=== PATIENT | female | born 1950 ===

== ENCOUNTER → 2023-05-21 14:30 | Outpatient (REF) | payer MEDICARE, SELFPAY ==
--- NOTE | 2023-05-21 14:43 | CA_ITS ---
Transthoracic Echocardiogram Patient (Last, First, Middle): Keely Cassidy, Gender: Female Date of : 1950 Age: 73 Procedure Date: 05/21/2023 Procedure Type: Transthoracic Echocardiogram Location: [facility] Height: 157.48 cm Weight: 107.5 kg BSA: 2.05 m2 Heart Rate: 80 bpm BP: 128 / 68 mmHg Stenotype Machine Operator: SB Referring MD: Mary King METER TECHNICIAN Symptoms: I10.HTN R60.0 LE EDEMA Study Quality: Technically Difficult ECG Rhythm: Sinus Conclusions: - 1. Technically limited study despite use of contrast agent 2. Normal LV systolic function with LVEF of 55-60% with impaired relaxation filling pattern 3. Limited visualization of cardiac valves with cardiac valvular Doppler within normal limits Findings Procedure Information Contrast agent, definity, is being given per protocol without apparent complications. Left Ventricle Normal left ventricular size, thickness, and systolic function. The visually estimated ejection fraction is between 55-60%. Spectral Doppler is indicative of an impaired relaxation filling pattern. Right Ventricle The right ventricle was not well visualized. Atria The left atrium is normal in size. Interatrial shunt cannot be excluded. The right atrium was not well visualized. Aortic Valve The aortic valve was not well visualized. There is no aortic valve stenosis. There is no aortic valve regurgitation. Mitral Valve The mitral valve was not well visualized. There is no mitral valve stenosis. Pulmonic Valve The pulmonic valve was not well visualized. Tricuspid Valve The tricuspid valve was not well visualized. Tricuspid regurgitation envelope is inadequate for calculation of right ventricular systolic pressure. Great Vessels The aorta was not well visualized. The pulmonary artery was not well visualized. Venous The inferior vena cava is normal in size. Pericardium/Pleural The pericardium was not well visualized. Prior Study Comparison No prior study available for comparison. Measurements 2D Linear Measurements IVSd: 1.12 0.6-0.9/0.6-1.0 cm LVIDd: 3.75 3.9-5.3/4.2-5.9 cm LVIDd Index: 1.83 2.4-3.2/2.2-3.1 cm/m2 LVIDs: 2.81 2.0-3.6 cm LVPWd: 0.86 0.7-1.1 cm LA Diam: 3.40 2.7-3.8/3.0-4.0 cm LAIDs Index: 1.66 1.5-2.3 cm/m2 LV Mass: 141.12 67-162/88-224 g LV Mass Index: 68.84 43-95/49-115 g/m2 LVOT Diam: 2.20 3.0+(-)1.3 cm 2D Systolic Function EF 4C: 54.60 >55% EF 2C: 64.30 >55% EF BiP: 59.00 >55% Mitral Valve MV Pk E: 0.51 MV PK A: 0.70 MV Decel Time: 201.00 E/A: 0.70 E'Lateral: 6.53 E'Medial: 5.77 E/E' Med: 8.80 E/E' Lat: 7.80 PHT: 59.00 MVA PHT: 3.73 Decel [place]: 2.54 Aortic Valve AoV Pk Jass: 1.03 AoV Mn Jass: 0.75 AoV VTI: 0.21 AoV Pk Grad: 4.00 Aov Mn Grad: 3.00 KIARA Cont.VTI: 2.84 LVOT LVOT Pk Jass: 0.88 LVOT Mn Jass: 0.63 LVOT VTI: 0.16 LVOT Pk Grad: 3.00 LVOT Mn Grad: 2.00 LVOT Diam: 2.20 LVOT Area: 3.80 Diastolic Function MV Pk E: 0.51 MV Pk A: 0.70 E/A: 0.70 E'Medial: 5.77 E/E' Med: 8.80 E' Laterial: 6.53 E/E' Lat: 7.80 Right Ventricle TVS' Jass: 7.70 Great Vessels Aorta Sinus of Valsalva: 2.80 2.0-3.5 cm Ao Asc: 2.90 2.1-3.4 cm Pulmonary Valve PV Pk Jass: 0.87 Peak PV Grad: 3.00 Updated in Other Vendor System with Status of Final Dwight Sultana MD electronically signed on 05/22/2023 2:19:40 PM with status of Final
== END ==
LOC: HO.CARD 14:30
PROVIDERS: PCP Nurse Practitioner Family; Visit Provider Nurse Practitioner Family
DX: I10 Essential (primary) hypertension (principal)
CPT/HCPCS: 93306; Q9957

== ENCOUNTER → 2023-05-21 14:43 | Outpatient (BNV) | payer MEDICARE, SELFPAY | PROVIDERS: PCP Nurse Practitioner Family; Visit Provider Internal Medicine Cardiovascular Disease | DX: I10 Essential (primary) hypertension (principal) | CPT/HCPCS: 93306 ==